=== PATIENT | female | born 1980 | race Caucasian/White ===

== ENCOUNTER 2018-11-29 20:31 | Emergency (ER) | payer MEDICAID ==
[~2018-11-29] VITALS: Ht 154.9 cm; Wt 62.1 kg
[2018-11-29 21:02] VITALS: Ht 154.9 cm; Wt 62.1 kg
[2018-11-29 21:53] VITALS: BP 124/70
== END 2018-11-29 21:53 | disposition home or self-care (01) ==
LOC: ED 20:31
DX: N39.0 Urinary tract infection, site not specified (principal); Z88.5 Allergy status to narcotic agent
CPT/HCPCS: J1885